=== PATIENT | male | born 1965 | race Caucasian/White ===

== ENCOUNTER → 2022-02-20 | Outpatient (CLI) | payer MEDICARE, OTHER ==
[~2022-02-20] MED LIST: BACTRIM DS TAB1 EACH PO; CATAPRES0.2 MG PO; DOXYCYCLINE HY100 MG PO; LITHIUM CARBON600 MG PO; MOBIC15 MG PO; REMERON30 MG PO; SERTRALINE HCL100 MG PO; WELLBUTRIN SR150 MG PO; ZANAFLEX 4 MG TA4 MG PO
== END ==
LOC: HEART 5 07:11
DX: R94.31 Abnormal electrocardiogram [ECG] [EKG] (principal); R07.89 Other chest pain; R06.00 Dyspnea, unspecified; R11.0 Nausea; E78.5 Hyperlipidemia, unspecified; I10 Essential (primary) hypertension
CPT/HCPCS: 78452; A9502

== ENCOUNTER → 2022-03-07 | Outpatient (CLI) | payer MEDICARE, OTHER ==
[~2022-03-07] MED LIST changes: +CRESTOR5 MG PO; +ISORDIL TAB 3030 MG PO; +LITHIUM CARBON450 MG PO; -LITHIUM CARBON600 MG PO; +OLANZAPINE5 MG PO; +PROAIR HFA8.5 GM INH; +VOLTAREN EC 7575 MG PO; +XANAX0.5 MG PO; +ZESTRIL10 MG PO
== END | disposition home or self-care (01) ==
LOC: CATH 06:34
DX: I20.8 Other forms of angina pectoris (principal); I10 Essential (primary) hypertension; E78.5 Hyperlipidemia, unspecified; E78.00 Pure hypercholesterolemia, unspecified; F31.9 Bipolar disorder, unspecified; F41.9 Anxiety disorder, unspecified; Z87.891 Personal history of nicotine dependence; Z79.899 Other long term (current) drug therapy; Z72.89 Other problems related to lifestyle; Z82.49 Family history of ischemic heart disease and other diseases of the circulatory system
CPT/HCPCS: 85610; 85730; 93005; 99152; 99153; C1769; C1887; C1894; J1644; J2250; J3010; J7030; Q9967